=== PATIENT | female | born 1935 | race Caucasian/White ===

== ENCOUNTER 2016-09-19 13:12 | Outpatient (CLI) | payer MEDICARE, OTHER ==
--- NOTE | 2016-09-19 20:08 | ULT ---
ULTRASOUND THYROID: HISTORY: Thyroid nodule. COMPARISON: Thyroid ultrasound 09/23/15. FINDINGS: In the right lobe of the thyroid is a vascular nodule measuring 1.1 x 0.9 x 1.1 cm. This is similar to the comparison examination. Right lobe of the thyroid measures 4.8 x 2 x 1.7 cm. The isthmus measures 4 mm in AP dimension. Le ft lobe of the thyroid measures 1.3 x 3.6 x 1.3 cm. IMPRESSION: Unchanged right thyroid nodule. This nodule has TI-RADS score of 1, not suspicious. POS: [facility]
== END 2016-09-19 13:13 | disposition home or self-care (01) ==
LOC: BURULT 13:12
PROVIDERS: ATTEND Specialist
DX: E04.1 Nontoxic single thyroid nodule (principal)
CPT/HCPCS: 76536

== ENCOUNTER 2016-10-12 08:46 | Outpatient (CLI) | payer MEDICARE, OTHER ==
[2016-10-12 09:30] LABS: #Basophils 0.1 thou/uL (0.0-0.2); #Eosinphils 0.2 thou/uL (0.0-0.7); #Lymphocytes 2.4 thou/uL (1.20-3.40); #Monocytes 0.6 thou/uL (0.11-0.59); #Neutrophils 2.9 thou/uL (1.40-6.50); %Basophils 1.2 % (0.0-1.0); %Eosinophils 3.8 % (0.0-10.0); %Lymphocytes 38.2 % (21.0-51.0); %Neutrophils 46.7 % (42.0-75.0); Hemoglobin 11.4 g/dL (12.0-16.0); Mean Corpuscular HGB CONC 33.8 g/dL (32.0-36.0); Mean Corpuscular Hemoglobin 31.2 pg (27.0-31.0); Mean Corpuscular Volume 92.2 fl (81.0-99.0); Platelet Count 241 thou/uL (130-400); RBC Distribution Width 12.9 % (11.5-14.5); Red Blood Cell (RBC) Count 3.67 mill/uL (4.20-5.40); White Blood Cell (WBC) Count 6.2 thou/uL (4.8-10.8)
[2016-10-12 09:56] LABS: ALT (SGPT) 19 U/L (8-55); AST (SGOT) 18 U/L (5-34); Alkaline Phosphatase 55 U/L (40-150); Anion Gap 17 mmol/L (10-20); BUN (Urea Nitrogen) 33 mg/dL (9.8-20.1); Bilirubin, Total 0.3 mg/dL (0.2-1.2); Calc. Creatinine Clearance 0 mL/min (70-130); Calcium 9.8 mg/dL (7.8-10.44); Carbon Dioxide 22 mmol/L (23-31); Cardiac Risk 3.6 (Less than 4.5); Chloride 107 mmol/L (98-107); Cholesterol 189 mg/dl (< 200 Desired); Estimated GFR-MDRD 36; Globulin 3.3 g/dL (2.4-3.5); Glucose 97 mg/dL (83-110); HDL Cholesterol 53 mg/dL (>60 Neg Risk); LDL Cholesterol, Calculated 101 mg/dL; Potassium 4.3 mmol/L (3.5-5.1); Protein, Total 7.3 g/dL (6.0-8.3); Sodium 142 mmol/L (136-145); Triglycerides 176 mg/dL (Less than 150)
== END 2016-10-12 08:47 | disposition home or self-care (01) ==
LOC: BURLAB 08:46
PROVIDERS: ATTEND Family Medicine
DX: E53.8 Deficiency of other specified B group vitamins (principal); I10 Essential (primary) hypertension
CPT/HCPCS: 36415; 80053; 80061; 82607; 85025

== ENCOUNTER 2018-05-20 10:19 | Outpatient (CLI) | payer MEDICARE, BC ==
--- NOTE | 2018-05-20 17:40 | RAD ---
RIGHT SHOULDER THREE VIEWS: 05/20/18 No fracture, dislocation, or AC joint widening was seen. There are several bony densities on the unde rsurface of the acromion. These may be calcifications in the supraspinatus tendon and some may even b e osteophytes projecting downward which could potentially cause impingement. There is some hazy calci fic density over the top of the AC joint suggesting there may have been old trauma here. IMPRESSION: Potential calcific tendonitis and/or osteophytes below the acromion causing impingement. POS: [facility]
== END 2018-05-20 10:20 | disposition home or self-care (01) ==
LOC: BURRAD 10:19
PROVIDERS: ATTEND Family Medicine
DX: M25.511 Pain in right shoulder (principal)

== ENCOUNTER 2018-06-25 12:06 | Outpatient (CLI) | payer MEDICARE, BC ==
[2018-06-25 17:29] LABS: Bilirubin Negative (Negative); Blood, Urine Negative (Negative); Clarity CLEAR (Clear); Glucose, Urine (Dipstick) Negative (Negative); Leukocyte Small (Negative); Nitrite Negative (Negative); Protein, Urine (Dipstick) Negative (Neg-Trace); Specific Gravity, Urine 1.005 (1.002-1.036); Urobilinogen 0.2 mg/dL (0.2-1.0); pH, Urine 6.5 (5.0-9.0)
[2018-06-25 17:36] LABS: Urine Culture Reflex No No
[2018-06-25 17:52] LABS: Creatinine, Urine Less than 20.00 mg/dL (47-110); Protein, Urine Random Quant Less than 10 mg/dL (1-14)
[2018-06-25 18:23] LABS: Anion Gap 12 mmol/L (10-20); BUN (Urea Nitrogen) 29 mg/dL (9.8-20.1); Calc. Creatinine Clearance 0 mL/min (70-130); Carbon Dioxide 30 mmol/L (23-31); Chloride 102 mmol/L (98-107); Estimated GFR-MDRD 34; Glucose 87 mg/dL (83-110); Potassium 4.3 mmol/L (3.5-5.1); Sodium 140 mmol/L (136-145)
--- NOTE | 2018-06-25 18:24 | ULT ---
BILATERAL RENAL ULTRASOUND: 06/25/18 Ultrasonography of the urinary tract showed normal appearing kidneys. The right measured 9.5 x 4.7 x 4.2 cm and the left measured 9.9 x 5.8 x 4.1 cm. No mass or hydronephrosis was seen in either. The co rtex is rather thin in each kidney, however. Several images of the urinary bladder showed no internal defects. Ureteral jets were present. IMPRESSION: Bilateral cortical thinning without any focal renal findings. POS: HOME
== END 2018-06-25 12:07 | disposition home or self-care (01) ==
LOC: BURULT 12:06
PROVIDERS: ATTEND Internal Medicine Nephrology
DX: I12.9 Hypertensive chronic kidney disease with stage 1 through stage 4 chronic kidney disease, or unspecified chronic kidney disease (principal); N18.3 Chronic kidney disease, stage 3 (moderate); R60.0 Localized edema
CPT/HCPCS: 36415; 76770; 80048; 81003; 82570; 83970; 84156; 86038; 86225

== ENCOUNTER 2020-09-12 11:50 | Outpatient (CLI) | payer MEDICARE, BC | END 2020-09-12 11:51 | disposition home or self-care (01) | LOC: BURRAD 11:50 | PROVIDERS: ATTEND Physician Assistant | DX: M25.531 Pain in right wrist (principal); M19.031 Primary osteoarthritis, right wrist ==

== ENCOUNTER 2022-04-17 15:14 | Outpatient (CLI) | payer MEDICARE, BC | END 2022-04-17 15:15 | disposition home or self-care (01) | LOC: BURRAD 15:14 | PROVIDERS: ATTEND Family Medicine | DX: J30.9 Allergic rhinitis, unspecified (principal) | CPT/HCPCS: 70220 ==

== ENCOUNTER 2023-09-23 14:33 | Outpatient (CLI) | payer MEDICARE | END 2023-09-23 14:34 | disposition home or self-care (01) | LOC: BURRAD 14:33 | PROVIDERS: ATTEND Family Medicine | DX: R05.3 Chronic cough (principal) | CPT/HCPCS: 71046 ==

== ENCOUNTER 2024-03-23 10:22 | Emergency (ER) | payer MEDICARE ==
[2024-03-23] MEDS ORDERED: HYDROcodone/Acetaminophen 5/325 mg Tablet ONE (10:46)
== END 2024-03-23 11:16 | disposition home or self-care (01) ==
LOC: BURERS 10:22
DX: M10.9 Gout, unspecified (principal); I12.9 Hypertensive chronic kidney disease with stage 1 through stage 4 chronic kidney disease, or unspecified chronic kidney disease; N18.9 Chronic kidney disease, unspecified; E78.5 Hyperlipidemia, unspecified
CPT/HCPCS: 99283